=== PATIENT | female | born 1985 | race Two or more races ===

== ENCOUNTER 2025-06-16 14:39 | Emergency (ER) | payer BC ==
[~2025-06-16] VITALS: Ht 175.3 cm; Wt 127.0 kg
[~2025-06-16 14:39] MED LIST: AMLO1TAB23 PO; LOSA-534 PO
--- NOTE | 2025-06-16 15:04 | ECG ---
[facility] Test Date: 2025-06-16 Test Time: 14:46:31 Pat Name: GARETH GRUBBS Department: ED Room: Gender: F Linux System Administrator: rene : 1985 Requested By: MAGDALENO OVALLE Order Number: [id number] Reading MD: Emerson Davis Measurements Intervals [place] Rate: 92 P: 61 VA: 143 QRS: 78 QRSD: 92 T: -7 QT: 344 QTc: 426 Interpretive Statements Sinus rhythm Borderline repolarization abnormality Baseline wander in lead(s) V2,V3,V4,V5,V6 Electronically Signed On 06-19-2025 18:48:14 PDT by Emerson Davis Please click the below link to view image of tracing.
--- NOTE | 2025-06-16 15:19 | ED.PDOC ---
HPI Comments This is a 40-year-old female with past medical history of high blood pressure, dyslipidemia and depression came to the hospital due to chest pain since 3 days. Pain is localized at substernal area, radiating to the left shoulder and left arm, constant, 4/10 in intensity, aching in nature, with no clear exacerbating or relieving factor. She also reports of nausea, decreased sleepiness, palpitation, dizziness, and generalized body shaking. She denies fever, vomiting, abdominal pain, or any bowel/bladder habit changes. Home meds: Losartan 50 mg daily and bupropion Chief Complaint: High Blood Pressure Time Seen by MD: 15:02 Primary Care Provider: ERUM Nguyen Notes: Nurses Notes Allergies: Coded Allergies: NO KNOWN ALLERGIES (Unverified , 01/01/12) Home Meds Active Scripts Losartan Potassium (Losartan Potassium) 50 Mg Tab, 50 MG PO DAILY for 30 Days, #30 TAB Prov:WAGNER COOPER MD 05/14/24 Amlodipine Besylate (Amlodipine Besylate) 10 Mg Tab, 10 MG PO DAILY PRN for 30 Days, #30 TAB Prov:WAGNER COOPER MD 05/14/24 Information Source: Patient Mode of Arrival: Ambulatory Past Medical History PAST MEDICAL HISTORY: Depression Surgical History: Denies all surgeries ATTEND[employer] LAUNDRY History: Denies all [employer] LAUNDRY Hx Family History Family History: Reviewed,noncontributory to illness Social History Smoker: Non-Smoker Alcohol: Denies ETOH Use Drugs: Denies Drug Use Lives In: Home Constitutional: denies: chills, diaphoresis, fatigue, fever, malaise, sweats, weakness, others EENTM: denies: blurred vision, double vision, ear bleeding, ear discharge, ear drainage, ear pain, ear ringing, eye pain, eye redness, hearing loss, mouth pain, mouth swelling, nasal discharge, nose bleeding, nose congestion, nose pain, photophobia, tearing, throat pain, throat swelling, voice changes, others Respiratory: denies: cough, hemoptysis, orthopnea, SOB at rest, shortness of breath, SOB with excertion, stridor, wheezing, others Cardiovascular: denies: chest pain, dizzy spells, diaphoresis, Dyspnea on exertion, edema, irregular heart beat, left arm pain, lightheadedness, palpitations, PND, syncope, others Gastrointestinal: denies: abdomen distended, abdominal pain, blood streaked bowels, constipated, diarrhea, dysphagia, difficulty swallowing, hematemesis, melena, nausea, poor appetite, poor fluid intake, rectal bleeding, rectal pain, vomiting, others Genitourinary: denies: abnormal vagina bleeding, burning, dyspareunia, dysuria, flank pain, frequency, hematuria, incontinence, pain, , vagina discharge, urgency, others Neurological: denies: dizziness, fainting, headache, left sided numbness, left sided weakness, numbness, paresthesia, pre-existing deficit, right sided numbness, right sided weakness, seizure, speech problems, tingling, tremors, weakness, others Musculoskeletal: denies: back pain, gout, joint pain, joint swelling, muscle pain, muscle stiffness, neck pain, others Integumetry: denies: bruises, change in color, change in hair/nails, dryness, laceration, lesions, lumps, rash, wounds, others Allergic/Immunocompromised: denies: Difficulty Healing, Frequent Infections, Hives, Itching, others Hematologic/Lymphatic: denies: anemia, blood clots, easy bleeding, easy bruising, swollen glands, others Endocrine: denies: excessive hunger, excessive sweating, excessive thirst, excessive urination, flushing, intolerance to cold, intolerance to heat, unexpl ained weight gain, unexplained weight loss, others Psychiatric: denies: anxiety, bipolar disorder, depression, hopeless, panic disorder, schizophrenia, sleepless, suicidal, others Physical Exam General Appearance: No Apparent Distress, Normal HEENT: Normal ENT Inspection, Pharynx Normal, TMs Normal Neck: Full Range of Motion, Non-Tender, Normal, Normal Inspection Respiratory: Chest Non-Tender, Lungs Clear, No Accessory Muscle Use, No Respiratory Distress, Normal Breath Sounds Cardiovascular: No Edema, No JVD, No Murmur, No Gallop, Normal Peripheral Pulses, Regular Rate/Rhythm Breast Exam: Deferred Gastrointestinal: No Organomegaly, Non Tender, No Pulsatile Mass, Normal Bowel Sounds, Soft Genitalia: Deferred Pelvic: Deferred Rectal: Deferred Extremities: No calf tenderness, Normal capillary refill, Normal inspection, Normal range of motion, Non-tender, No pedal edema Musculoskeletal : Apperance: Normal Neurologic: Alert, computer aided design operator II-XII nml as Tested, No Motor Deficits, Normal Affect, Normal Mood, No Sensory Deficits Cerebellar Function: Normal Reflexes: Normal Skin: Dry, Normal Color, Warm Lymphatic: No Adenopathy EKG EKG : Comments Normal sinus rhythm with no significant ST or T-wave changes. Was a procedure done? Was a procedure done?: No CP Differential Dx Differential Diagnosis: Other Differential Diagnosis: Costochondritis X-Ray, Labs, Meds, VS Vital Signs Date Time Temp Pulse Resp B/P (MAP) Pulse Ox O2 Delivery O2 Flow Rate FiO2 06/16/25 16:02 124/103 06/16/25 15:58 99 16 124/103 (110) 98 06/16/25 14:46 92 06/16/25 14:40 98.1 97 16 151/102 95 98.1 Lab Test 06/16/25 15:35 06/16/25 15:16 Range/Units Troponin I High Sensitivity < 3 L < 3 L </=34 ng/L White Blood Count 9.9 4.4-10.8 10^3/uL Red Blood Count 4.68 4.0-5.20 10^6/uL Hemoglobin 14.3 12.2-16.2 g/dL Hematocrit 43.1 36.0-46.0 % Mean Corpuscular Volume 92.1 80.0-100.0 fL Mean Corpuscular Hemoglobin 30.5 28.0-32.0 pg Mean Corpuscular Hemoglobin Concent 33.2 32.0-36.0 g/dL Red Cell Distribution Width 13.7 11.8-14.3 % Platelet Count 327 140-450 10^3/uL Mean Platelet Volume 8.5 6.9-10.8 fL Neutrophils (%) (Auto) 69.9 37.0-80.0 % Lymphocytes (%) (Auto) 23.6 10.0-50.0 % Monocytes (%) (Auto) 4.7 0.0-12.0 % Eosinophils (%) (Auto) 1.4 0.0-7.0 % Basophils (%) (Auto) 0.4 0.0-2.0 % Neutrophils # (Auto) 7.0 1.6-8.6 10 ^3/uL Lymphocytes # (Auto) 2.3 0.4-5.4 10 ^3/uL Monocytes # (Auto) 0.5 0-1.3 10 ^3/uL Eosinophils # (Auto) 0.1 0-0.8 10 ^3/uL Basophils # (Auto) 0 0-0.2 10 ^3/uL Nucleated Red Blood Cells 0.1 % Sodium Level 140 136-145 mmol/L Potassium Level 4.0 3.5-5.1 mmol/L Chloride Level 106 98-107 mmol/L Carbon Dioxide Level 24 20-31 mmol/L Anion Gap 10 5-15 Blood Urea Nitrogen 6 L 9-23 mg/dL Creatinine 0.86 0.550-1.02 mg/dL Glomerular Filtration Rate Calc 89 >90 mL/min BUN/Creatinine Ratio 7.0 L 10.0-20.0 Serum Glucose 93 74-106 mg/dL Calcium Level 9.4 8.7-10.4 mg/dL Beta HCG, Quantitative 0.0 L 1.5-4.2 mIU/mL Current Medications Medications (Trade) Dose Ordered Sig/Werner Route Start Time Stop Time Status Last Admin Amlodipine Besylate (Norvasc Tablet) 10 mg ONCE ONCE PO 06/16/25 15:15 06/16/25 15:28 DC 06/16/25 16:02 Time of 1ST Reevaluation: 18:33 Reevaluation 1ST: Improved Patient Education/Counseling: Diagnosis, Treatment, Prognosis, Need For Follow Up Family Education/Counseling: No Family Present Comments Came to the hospital due to chest pain. EKG was showing normal sinus rhythm with no significant ST or T-wave changes. Serial trop I within normal limits CBC and CMP checked within normal. Patient was given acetaminophen, morphine and Zofran On subsequent tumor, patient was feeling better. The patient does not have any chest pain, shortness of breath or any other symptoms. Patient was recommended to follow up with the PCP. Patient discharged home. SEPSIS Sepsis Screen Date sepsis recognized/suspect: Jun 16, 2025 Time Sepsis recognized/suspect: 1441 Recent Procedure: No On Antibiotic Therapy: No Respiratory Rate >20: No Heart Rate >90: Yes Temp<36 C (96.8 F) or >38.3 C: No SBP <90 or MAP <65 mmHG: No New Acute Mental Status Change: No Is the patient on CPAP, BIPAP,: No Physician Orders Electrocardigram (06/16/25 15:44) Electrocardigram (06/16/25 17:44) Drug Screen (06/16/25 15:02) Chest Xray 1 View (06/16/25 15:02) Vital Signs Date Time Temp Pulse Resp B/P (MAP) Pulse Ox O2 Delivery O2 Flow Rate FiO2 06/16/25 16:02 124/103 06/16/25 15:58 99 16 124/103 (110) 98 06/16/25 14:46 92 06/16/25 14:40 98.1 97 16 151/102 95 98.1 Laboratory Tests Test 06/16/25 15:16 White Blood Count 9.9 10^3/uL (4.4-10.8) Medications Medications Dose Ordered Sig/Werner Route Start Time Stop Time Status Last Admin Dose Admin Amlodipine Besylate 10 mg ONCE ONCE PO 06/16/25 15:15 06/16/25 15:28 DC 06/16/25 16:02 Departure 1 Departure Time of Disposition: 18:35 Impression: Primary Impression: Anxiety Additional Impression: Musculoskeletal pain Disposition: 01 HOME / SELF CARE / HOMELESS Condition: Fair Critical Care Note Critical Care Time?: Yes (45 min-critical care time only) Stability Stability form required: No Heart Score Heart Score: Heart Score Response (Comments) Value History N/A 0 EKG Normal 0 Age <45 0 Risk Factors 1 or 2 risk factors 1 Troponin Normal limit 0 Total 1 SUHA LARRY Jun 16, 2025 15:19
[2025-06-16 15:37] LABS: Hematocrit 43.1 % (36.0-46.0); Hemoglobin 14.3 g/dL (12.2-16.2); Mean Corpuscular Hemoglobin 30.5 pg (28.0-32.0); Mean Corpuscular Volume 92.1 fL (80.0-100.0); Nucleated Red Blood Cells % 0.1 %
[2025-06-16 15:44] LABS: Chloride 106 mmol/L (98-107); Potassium 4.0 mmol/L (3.5-5.1); Sodium 140 mmol/L (136-145)
[2025-06-16 15:45] LABS: Anion Gap 10 (5-15); Carbon Dioxide 24 mmol/L (20-31)
[2025-06-16 15:46] LABS: Calcium 9.4 mg/dL (8.7-10.4)
[2025-06-16 15:50] LABS: BUN/Creatinine Ratio 7.0 (10.0-20.0); Glucose 93 mg/dL (74-106)
[2025-06-16 15:51] LABS: Blood Urea Nitrogen 6 mg/dL (9-23)
[2025-06-16] MEDS: MORPHINE SULFATE 4 MG/ML SYR/VIAL IV ONE (15:59)
[2025-06-16] MEDS: ONDANSETRON HCL 4 MG/2 ML VIAL IV ONE (16:00)
--- NOTE | 2025-06-16 16:28 | DVH ---
CHEST RADIOGRAPH Indication: chest pain Technique: Single frontal view of the chest was obtained Comparison: XY CHEST PORTABLE on DOS: 05/14/24 FINDINGS: Lines and Tubes: None Lungs: No focal consolidation. Pleura: No effusion. No pneumothorax. Cardiomediastinal contours: Unremarkable Bones: No acute osseous abnormality. IMPRESSION: No acute cardiopulmonary disease.
[2025-06-16 18:55] VITALS: BP 137/94; PULSE 98; RESP 18; TEMP 98.2; O2SAT 100
== END 2025-06-16 18:55 | disposition home or self-care (01) ==
LOC: ER 14:39
DX: F41.9 Anxiety disorder, unspecified (principal); R07.2 Precordial pain; E78.5 Hyperlipidemia, unspecified; F32.A Depression, unspecified; Z79.899 Other long term (current) drug therapy
CPT/HCPCS: 36415; 71045; 80048; 84484; 84702; 85025; 93005